=== PATIENT | female | born 1990 | race Two or more races ===

== ENCOUNTER 2018-03-20 13:37 | Emergency (ER) | payer OTHER ==
[~2018-03-20] VITALS: Ht 157.5 cm; Wt 83.9 kg
[2018-03-20] MEDS ORDERED: NKM (13:49)
[2018-03-20] MEDS ORDERED: Tetanus/Diptheria/Pertussis Vaccine 0.5ml Syr IM ONE (14:00)
--- NOTE | 2018-03-20 14:03 | Emergency Room Report ---
History of Present Illness General Chief Complaint: Lower Extremity Injury Source: Patient Present Illness HPI Andie is a healthy 27 yo female who presents for evaluation. patient incurred an injury at her place of work last Friday 6 days ago. She cut her posterior left ankle on the corner of a metal door. She has a small abrasion that is healing well. 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 Denies pain or signs of infection. Allergies: Coded Allergies: No Known Allergies (Unverified , 03/20/18) Patient History Last Menstrual Period: 03/15/2018 Nursing Documentation-[facility] Past Medical History: No Stated History Review of Systems Constitutional: Denies: fever, malaise Skin: Reports: lesions Hematologic/Lymphatic: Denies: easy bleeding, easy bruising Physical Exam Vital Signs Date Time Temp Pulse Resp B/P (MAP) Pulse Ox O2 Delivery O2 Flow Rate FiO2 03/20/18 13:46 98.2 52 14 124/82 96 Room Air 98.2 General Appearance: well appearing, no apparent distress Head: normocephalic, atraumatic Eyes: bilateral eye normal inspection ENT: hearing grossly normal, normal voice Neck: full range of motion, supple Respiratory: no respiratory distress, speaking full sentences Musculoskeletal: no calf tenderness Neurologic: alert, normal gait Psychiatric: mood/affect normal Skin: abrasions - 1.5 cm circular abrasion posterior ankle healing appropriately no redness no swelling no discharge Medical Decision Making Diagnostic Impression: Primary Impression: Ankle abrasion without infection Additional Impression: Work related injury ER Course minor ankle has healed well over the last 6 days. No signs of superinfection or ligamentous injury. Patient received tdap booster in ED. documentation provided to patient Last Vital Signs Date Time Temp Pulse Resp B/P (MAP) Pulse Ox O2 Delivery O2 Flow Rate FiO2 03/20/18 13:46 98.2 52 14 124/82 96 Room Air 98.2 Disposition: HOME, SELF-CARE Taylor Moctezuma MD Mar 20, 2018 14:03
[2018-03-20 14:18] VITALS: BP 124/82
== END 2018-03-20 14:19 | disposition home or self-care (01) ==
LOC: EMR 13:58
DX: S90.511D Abrasion, right ankle, subsequent encounter (principal); W26.8XXD Contact with other sharp object(s), not elsewhere classified, subsequent encounter; Z23 Encounter for immunization; Y92.89 Other specified places as the place of occurrence of the external cause; Y99.0 Civilian activity done for income or pay
CPT/HCPCS: 90471; 90715; 99283